=== PATIENT | male | born 1940 | race Caucasian/White ===

== ENCOUNTER 2017-08-06 08:38 | Day surgery (SDC) | payer MEDICARE, MEDICAID ==
[~2017-08-06 08:38] MED LIST: Lactated Ringers 1,000 ML IV SCH; Sodium Chloride 0.9% 5 ML Syringe FLUSH PRN
[2017-08-06] MEDS ORDERED: Lidocaine 2% Jelly 5 ML Tube ONE (09:37)
[2017-08-06] MEDS ORDERED: Propofol 200 MG/20 ML SDV IV ONE (09:45)
[2017-08-06] MEDS ORDERED: Midazolam 1 MG/ML 2 ML SDV ONE (09:45)
[2017-08-06] MEDS ORDERED: Midazolam 1 MG/ML 2 ML SDV IV ONE (09:45)
[2017-08-06] MEDS ORDERED: fentaNYL 100 MCG/2 ML SDV ONE (09:45)
[2017-08-06] MEDS ORDERED: Propofol 200 MG/20 ML SDV ONE (09:45)
[2017-08-06] MEDS ORDERED: fentaNYL 100 MCG/2 ML SDV IV ONE (09:45)
[2017-08-06] MEDS ORDERED: ceFAZolin 1 GM Vial IV ONE (09:45)
[2017-08-06] MEDS ORDERED: ceFAZolin 1 GM Vial ONE (10:05)
[2017-08-06] MEDS ORDERED: Lidocaine 2% Jelly 10 ML Urojet ONE (10:05)
--- NOTE | 2017-08-06 10:48 | PCM.PRNOTE ---
- Free Text/Narrative Note: Preoperative diagnosis: Dysuria frequency. Feeling of incomplete evacuation. Previous history of bladder stone. Previous history of urethral stenosis. Postoperative diagnosis: Severe meatal stenosis, phimosis ,Urethral stenosis, small bladder stone, previous history of TURP. Procedure performed: Meatotomy, urethral dilatation, cystoscopy. Informed consent was obtained from the patient and his . They wished me to proceed. All possible complications were discussed. The patient was taken toward and given a satisfactory general anesthetic. After that he was kept in lithotomy position. Genitals were thoroughly prepped and draped in the usual fashion. Examination revealed severe meatal stenosis. The meatotomy is performed. Also there was phimosis. We then gently dilated the urethra to #28 dilators. Following this we introduced a forward-viewing Zeiss cystoscope over a 20 Armenian obturator sheath. The urethra was felt to be normal. There was evidence of TURP. The scope was passed into the bladder. A very small stone was seen and irrigated out. The rest of the bladder mucosa was normal. There was no evidence of neoplasm. The scope was withdrawn. A 12 Armenian coud catheter was placed into the bladder. Returning urine was clear. The patient was transferred to the recovery room in an excellent condition.
[2017-08-06 13:36] VITALS: BP 122/73
== END 2017-08-06 12:45 | disposition home or self-care (01) ==
LOC: KA.SDS 08:38
PROVIDERS: ATTEND Family Medicine
DX: N35.9 Urethral stricture, unspecified (principal); N47.1 Phimosis; N21.0 Calculus in bladder; N40.0 Benign prostatic hyperplasia without lower urinary tract symptoms; E78.5 Hyperlipidemia, unspecified; I10 Essential (primary) hypertension; F41.9 Anxiety disorder, unspecified; Z86.718 Personal history of other venous thrombosis and embolism; Z79.899 Other long term (current) drug therapy; Z79.82 Long term (current) use of aspirin
CPT/HCPCS: 00910; J0690; J2250; J2704; J3010; J7120

== ENCOUNTER 2017-11-16 10:01 | Emergency (ER) | payer MEDICARE, MEDICAID ==
[2017-11-16 10:34] VITALS: BP 114/54
--- NOTE | 2017-11-16 11:02 | EDM.PDOC ---
ED HPI GENERAL MEDICAL PROBLEM - General Chief Complaint: General Stated Complaint: HE STATES HIS BUTT HURTS Time Seen by Provider: 11/16/17 10:24 Source of Information: Reports: Patient History Limitations: Reports: No Limitations - History of Present Illness INITIAL COMMENTS - FREE TEXT/NARRATIVE: Patient presents with gala-rectal pain that started 3 days ago but has worsened in last 24 hours. The pain is on the right side and hurts to sit. He denies history of hemorrhoids or abscess. Right Rectal Pain Score (Numeric/FACES): 3 - Related Data Allergies Allergy/AdvReac Type Severity Reaction Status Date / Time No Known Drug Allergies Allergy NKDA Verified 11/16/17 10:34 Home Meds: Home Meds Dutasteride [Avodart] 0.5 mg PO BEDTIME 09/14/14 [History] Esomeprazole [NexIUM] 40 mg PO QAM 09/14/14 [History] Iron Polysaccharide Complex [Poly-Iron] 150 mg PO BID 09/14/14 [History] Tamsulosin HCl 0.4 mg PO BEDTIME 09/14/14 [History] atorvaSTATin [Lipitor] 20 mg PO BEDTIME 09/14/14 [History] Acetaminophen [Tylenol Extra Strength] 1,000 mg PO Q6H PRN 06/20/17 [History] Aspirin [Halfprin] 81 mg PO BRK 06/20/17 [History] Fenofibrate Nanocrystallized [Fenofibrate] 145 mg PO DAILY 06/20/17 [History] Lisinopril/Hydrochlorothiazide [Lisinopril-Hctz 20-12.5 mg Tab] 1 each PO DAILY 06/20/17 [History] amLODIPine [Norvasc] 2.5 mg PO DAILY 06/20/17 [History] Past Medical History HEENT History: Reports: Sinusitis Cardiovascular History: Reports: Blood Clots/VTE/DVT, High Cholesterol, Hypertension Genitourinary History: Reports: BPH, Renal Calculus, UTI, Recurrent Musculoskeletal History: Reports: Arthritis, Back Pain, Chronic, Neck Pain, Chronic, Other (See Below) Other Musculoskeletal History: facet joint syndrom Psychiatric History: Reports: Anxiety Hematologic History: Reports: Iron Deficiency Immunologic History: Reports: None Oncologic (Cancer) History: Reports: Leukemia, Other (See Below) Other Oncologic History: Chronic Lymphocitic leukemia - Past Surgical History Oncologic Surgical History: Reports: None Social & Family History - Family History Family Medical History: Unobtainable ED ROS GENERAL - Review of Systems Review Of Systems: See Below Constitutional: Denies: Fever, Chills, Malaise, Weakness HEENT: Reports: No Symptoms Respiratory: Reports: No Symptoms. Denies: Shortness of Breath Cardiovascular: Reports: No Symptoms. Denies: Chest Pain, Syncope GI/Abdominal: Denies: Diarrhea, Vomiting Musculoskeletal: Reports: No Symptoms Skin: Reports: No Symptoms Neurological: Denies: Confusion, Dizziness, Headache, Seizure, Syncope Psychiatric: Denies: Agitation, Anxiety, Confusion ED EXAM, GENERAL - Physical Exam Exam: See Below Exam Limited By: No Limitations General Appearance: Alert, WD/WN, No Apparent Distress Eye Exam: Bilateral Eye: EOMI, Normal Inspection, PERRL Ears: Normal External Exam, Hearing Grossly Normal Nose: Normal Inspection, No Blood Throat/Mouth: Normal Inspection, Normal Lips, Normal Voice, No Airway Compromise Head: Atraumatic, Normocephalic Neck: Normal Inspection, Full Range of Motion Respiratory/Chest: No Respiratory Distress, Lungs Clear, Normal Breath Sounds, No Accessory Muscle Use Cardiovascular: Regular Rate, Rhythm, No Murmur Rectal (Males) Exam: Black Stool (he says he has had black stools related to his iron pill for 4 years; he has talked to Dr. Chin about it several times and is normal for him and iron supplement. No anemia or bleeding he says.), Other ( Two inches to the right of rectum, right lateral perineum and just posterior to the gluteal-thigh junction, is a 2 cm annular open abrasion. There is no induration or evidence of abscess formation but localized cellulitis mildly evident.) Extremities: Normal Inspection, Normal Range of Motion Neurological: Alert, Oriented, Normal Cognition, No Motor/Sensory Deficits Psychiatric: Normal Affect, Normal Mood Skin Exam: Warm, Dry, Normal Color, No Rash Course - Vital Signs Last Recorded V/S: Last Vital Signs Temp 98.0 F 11/16/17 10:30 Pulse 83 11/16/17 10:30 Resp 20 11/16/17 10:30 BP 114/54 L 11/16/17 10:30 Pulse Ox 98 11/16/17 10:30 - Re-Assessments/Exams Free Text/Narrative Re-Assessment/Exam: 11/16/17 11:17 Discussed findings and treatment plan with patient. We treated with neosporin and sterile dressing in ER. Will give Rx for Keflex and send 3 doses with patient to cover until Friday morning. Patient discharged to home in stable condition. Departure - Departure Time of Disposition: 11:12 Disposition: Home, Self-Care 01 Condition: Good Clinical Impression: Perineal abrasion - Discharge Information Referrals: Britta Villafana MD [Primary Care Provider] - Additional Instructions: 1. Take the antibiotic as directed. 2. Place antibiotic ointment or vaseline on the wound once or twice daily until healed. 3. Follow up with your PCP in two days for recheck.
[2017-11-16] MEDS ORDERED: Cephalexin 250 MG Cap PO ONE (11:15)
== END 2017-11-16 11:30 | disposition home or self-care (01) ==
LOC: KA.ED 10:01
DX: S30.810A Abrasion of lower back and pelvis, initial encounter (principal); E78.00 Pure hypercholesterolemia, unspecified; I10 Essential (primary) hypertension; Z79.82 Long term (current) use of aspirin; Z79.899 Other long term (current) drug therapy; X58.XXXA Exposure to other specified factors, initial encounter
CPT/HCPCS: 99282; A9270

== ENCOUNTER 2018-03-01 10:07 | Emergency (ER) | payer MEDICARE, MEDICAID ==
[2018-03-01 10:21] VITALS: BP 133/64
--- NOTE | 2018-03-01 10:40 | EDM.PDOC ---
ED HPI GENERAL MEDICAL PROBLEM - General Chief Complaint: General Stated Complaint: SORE THROAT Time Seen by Provider: 03/01/18 10:20 Source of Information: Reports: Patient History Limitations: Reports: No Limitations - History of Present Illness INITIAL COMMENTS - FREE TEXT/NARRATIVE: 78 YO WM presents to ER complaining of sore throat x 2 days. Pt states his pain is mild but hasn't improved in 2 days prompting ER evaluation. Pt denies difficulty breathing or swallowing. Pt denies fever/chills. Pt denies dysphagia to liquids or solids. Pt reports mild nasal congestion and intermittent nonproductive cough. Pt also complaining of right foot pain after fall 3 days ago. Pt reports pain is to right 2,3,4 toes. Pt denies any other injury. Pt denies loss of consciousness. Onset Date: 02/27/18 Duration: Day(s): (2) Location: Reports: Lower Extremity, Right Quality: Reports: Ache Severity: Mild Improves with: Reports: None Worsens with: Reports: None Associated Symptoms: Reports: No Other Symptoms Treatments RN TESTING: Reports: Acetaminophen, Other Medication(s) Other Treatments RN TESTING: cough drops - Related Data Allergies Allergy/AdvReac Type Severity Reaction Status Date / Time No Known Drug Allergies Allergy NKDA Verified 03/01/18 10:43 Home Meds: Home Meds Dutasteride [Avodart] 0.5 mg PO BEDTIME 09/14/14 [History] Esomeprazole [NexIUM] 40 mg PO QAM 09/14/14 [History] Iron Polysaccharide Complex [Poly-Iron] 150 mg PO BIDMEALS 09/14/14 [History] Tamsulosin HCl 0.4 mg PO BEDTIME 09/14/14 [History] atorvaSTATin [Lipitor] 20 mg PO BEDTIME 09/14/14 [History] Acetaminophen [Tylenol Extra Strength] 1,000 mg PO Q6H PRN 06/20/17 [History] Aspirin [Halfprin] 81 mg PO BRK 06/20/17 [History] Fenofibrate Nanocrystallized [Fenofibrate] 145 mg PO DAILY 06/20/17 [History] Lisinopril/Hydrochlorothiazide [Lisinopril-Hctz 20-12.5 mg Tab] 1 each PO DAILY 06/20/17 [History] amLODIPine [Norvasc] 2.5 mg PO DAILY 06/20/17 [History] Past Medical History HEENT History: Reports: Sinusitis Cardiovascular History: Reports: Blood Clots/VTE/DVT, High Cholesterol, Hypertension Genitourinary History: Reports: BPH, Renal Calculus, UTI, Recurrent Musculoskeletal History: Reports: Arthritis, Back Pain, Chronic, Neck Pain, Chronic, Other (See Below) Other Musculoskeletal History: facet joint syndrom Psychiatric History: Reports: Anxiety Hematologic History: Reports: Iron Deficiency Immunologic History: Reports: None Oncologic (Cancer) History: Reports: Leukemia, Other (See Below) Other Oncologic History: Chronic Lymphocitic leukemia - Past Surgical History Oncologic Surgical History: Reports: None Social & Family History - Family History Family Medical History: Unobtainable - Caffeine Use Caffeine Use: Reports: None ED ROS GENERAL - Review of Systems Review Of Systems: See Below Constitutional: Reports: No Symptoms HEENT: Reports: Rhinitis, Throat Pain Respiratory: Reports: No Symptoms Cardiovascular: Reports: No Symptoms Endocrine: Reports: No Symptoms GI/Abdominal: Reports: No Symptoms : Reports: No Symptoms Musculoskeletal: Reports: Foot Pain (right 2,3,4th toes) Skin: Reports: No Symptoms Neurological: Reports: No Symptoms Psychiatric: Reports: No Symptoms Hematologic/Lymphatic: Reports: No Symptoms Immunologic: Reports: No Symptoms ED EXAM, GENERAL - Physical Exam Exam: See Below Exam Limited By: No Limitations General Appearance: Alert, WD/WN, No Apparent Distress Nose: Normal Inspection, Normal Mucosa, No Blood Throat/Mouth: Normal Inspection, Normal Lips, Normal Gums, Normal Oropharynx, Normal Voice, No Airway Compromise. No: Dysphagia Head: Atraumatic, Normocephalic Neck: Normal Inspection, Supple, Non-Tender, Full Range of Motion Respiratory/Chest: No Respiratory Distress, Lungs Clear, Normal Breath Sounds, No Accessory Muscle Use, Chest Non-Tender Cardiovascular: Normal Peripheral Pulses, Regular Rate, Rhythm, No Edema, No Gallop, No JVD, No Murmur, No Rub GI/Abdominal: Normal Bowel Sounds, Soft, Non-Tender, No Organomegaly, No Distention, No Abnormal Bruit, No Mass Back Exam: Normal Inspection, Full Range of Motion, NT Extremities: Other (right 2,3,4th toe with mild echymosis without swelling) Neurological: Alert, Oriented, CN II-XII Intact, Normal Cognition, Normal Gait, Normal Reflexes, No Motor/Sensory Deficits Psychiatric: Normal Affect, Normal Mood Skin Exam: Warm, Dry, Intact, Normal Color, No Rash Lymphatic: No Adenopathy Course - Vital Signs Last Recorded V/S: Last Vital Signs Temp 36.6 C 03/01/18 10:18 Pulse 84 03/01/18 10:18 Resp 20 03/01/18 10:18 BP 133/64 03/01/18 10:18 Pulse Ox 96 03/01/18 10:18 - Orders/Labs/Meds Orders: Active Orders 24 hr Category Date Time Status Foot Comp Min 3V Rt [CR] Stat Exams 03/01/18 10:40 Ordered Departure - Departure Time of Disposition: 11:30 Disposition: Home, Self-Care 01 Condition: Good Clinical Impression: Contusion of foot Qualifiers: Encounter type: initial encounter Laterality: right Qualified Code(s): S90.31XA - Contusion of right foot, initial encounter Pharyngitis Qualifiers: Pharyngitis/tonsillitis etiology: unspecified etiology Qualified Code(s): J02.9 - Acute pharyngitis, unspecified Upper respiratory infection Qualifiers: URI type: unspecified viral URI Qualified Code(s): J06.9 - Acute upper respiratory infection, unspecified - Discharge Information Instructions: Foot Contusion, Kxez-[id number], Viral Respiratory Infection, Easy- To-Read, Pharyngitis Referrals: Bayron Meier PA-C [Primary Care Provider] - Forms: ED Department Discharge Additional Instructions: 1. discharge home 2. motrin 600mg PO Q6 x 5 days 3. zyrtec 10mg PO QD 4. daina tape toes 5. follow up at [facility] for further evaluation and treatment 6. return to ER for worsening symptoms - My Orders Last 24 Hours: My Active Orders 03/01/18 10:40 Foot Comp Min 3V Rt [CR] Stat - Assessment/Plan Last 24 Hours: My Active Orders 03/01/18 10:40 Foot Comp Min 3V Rt [CR] Stat Assessment:: 1. right foot pain 2. viral pharyngitis 3. URI Plan: 1. discharge home 2. motrin 600mg PO Q6 x 5 days 3. zyrtec 10mg PO QD 4. daina tape toes 5. follow up at [facility] for further evaluation and treatment 6. return to ER for worsening symptoms
== END 2018-03-01 11:40 | disposition home or self-care (01) ==
LOC: KA.ED 10:07
DX: S90.121A Contusion of right lesser toe(s) without damage to nail, initial encounter (principal); J02.9 Acute pharyngitis, unspecified; J06.9 Acute upper respiratory infection, unspecified; W19.XXXA Unspecified fall, initial encounter
CPT/HCPCS: 73630-RT; 87081; 87430; 99283

== ENCOUNTER 2022-02-20 22:24 | Inpatient (IN) | payer MEDICARE, MEDICAID ==
[2022-02-20] MEDS ORDERED: Sodium Chloride 0.9% 10 ML Syringe FLUSH PRN (22:50)
[2022-02-20] MEDS ORDERED: Sodium Chloride 0.9% 500 ML IV SCH (23:15)
[2022-02-20 23:43] LABS: ANION GAP 18.8 mmol/L (5-15); CHLORIDE,CL 114 mmol/L (98-107); SODIUM,NA 149 mmol/L (136-145)
[2022-02-20 23:58] LABS: ESTIMATED GFR 29 mL/min (>=60)
[2022-02-21 00:04] LABS: PTT,PARTIAL THROMBOPLSTIN TIME 29.1 SEC (22.8-31.4)
[2022-02-21] MEDS: Lactated Ringers 1,000 ML IV SCH ×2 (01:50→10:27)
[2022-02-21 02:43] LABS: ANION GAP 17.3 mmol/L (5-15)
[2022-02-21 05:44] LABS: ANION GAP 15.8 mmol/L (5-15)
[2022-02-21] MEDS: Gabapentin 100 MG Cap PO SCH ×2 (10:14→20:05)
[2022-02-21 11:22] LABS: ANION GAP 13.3 mmol/L (5-15)
[2022-02-21 18:07] LABS: ANION GAP -3.2 mmol/L (5-15)
[2022-02-21] MEDS ORDERED: cefTRIAXone 2 GM Vial IVPUSH ONE (19:14)
[2022-02-21] MEDS ORDERED: Azithromycin 500 MG in Sodium Chloride 0.9% 250 ML IV ONE (19:16)
[2022-02-21] MEDS ORDERED: Sodium Chloride 0.9% 100 ML IV SCH (19:45)
[2022-02-21] MEDS: Sodium Chloride 0.9% 1,000 ML IV SCH (19:53)
[2022-02-21] MEDS: Tamsulosin 0.4 MG Cap.ER PO SCH (20:04)
[2022-02-21] MEDS: Mirtazapine 15 MG Tab PO SCH (20:05)
[2022-02-21] MEDS: Cetirizine 10 MG Tab PO SCH (20:06)
[2022-02-21] MEDS: Melatonin 3 MG Tab PO SCH (20:07)
[2022-02-22 00:24] LABS: ANION GAP 10.3 mmol/L (5-15)
[2022-02-22] MEDS: Omeprazole 20 MG Cap.CR PO SCH ×2 (05:44→08:21)
[2022-02-22 08:26] LABS: ANION GAP 9.4 mmol/L (5-15)
[2022-02-22] MEDS: Gabapentin 100 MG Cap PO SCH ×2 (08:32→20:32)
[2022-02-22] MEDS: Dutasteride 0.5 MG Cap PO SCH (08:32)
[2022-02-22] MEDS: Sodium Chloride 0.9% 1,000 ML IV SCH (10:25)
[2022-02-22] MEDS ORDERED: Amoxicillin/Clavulanate K 875-125 MG Tab PO SCH (11:00)
[2022-02-22] MEDS: Magnesium Oxide 500 MG Tab PO SCH ×2 (11:17→20:32)
[2022-02-22] MEDS: Azithromycin 250 MG Tab PO SCH (18:09)
[2022-02-22] MEDS: Mirtazapine 15 MG Tab PO SCH (20:31)
[2022-02-22] MEDS: Cetirizine 10 MG Tab PO SCH (20:32)
[2022-02-22] MEDS: Amoxicillin/Clavulanate K 875-125 MG Tab PO SCH (20:32)
[2022-02-22] MEDS: Melatonin 3 MG Tab PO SCH (20:32)
[2022-02-22] MEDS: Tamsulosin 0.4 MG Cap.ER PO SCH (20:32)
[2022-02-22] MEDS: Acetaminophen 500 MG Tab PO PRN (20:32)
[2022-02-23] MEDS: Omeprazole 20 MG Cap.CR PO SCH (07:56)
[2022-02-23 08:20] LABS: ANION GAP 11.4 mmol/L (5-15)
[2022-02-23] MEDS: Magnesium Oxide 500 MG Tab PO SCH ×2 (09:01→21:21)
[2022-02-23] MEDS: Gabapentin 100 MG Cap PO SCH ×2 (09:01→21:20)
[2022-02-23] MEDS: Azithromycin 250 MG Tab PO SCH (09:01)
[2022-02-23] MEDS: Dutasteride 0.5 MG Cap PO SCH (09:01)
[2022-02-23] MEDS: Amoxicillin/Clavulanate K 875-125 MG Tab PO SCH ×2 (09:02→21:20)
[2022-02-23] MEDS: Acetaminophen 500 MG Tab PO PRN (18:57)
[2022-02-23] MEDS: Tamsulosin 0.4 MG Cap.ER PO SCH (21:20)
[2022-02-23] MEDS: Melatonin 3 MG Tab PO SCH (21:20)
[2022-02-23] MEDS: Mirtazapine 15 MG Tab PO SCH (21:20)
[2022-02-23] MEDS: Cetirizine 10 MG Tab PO SCH (21:20)
[2022-02-24] MEDS: Omeprazole 20 MG Cap.CR PO SCH ×2 (06:01→06:44)
[2022-02-24 08:11] LABS: ANION GAP 9.9 mmol/L (5-15)
[2022-02-24] MEDS: Amoxicillin/Clavulanate K 875-125 MG Tab PO SCH ×2 (09:26→20:03)
[2022-02-24] MEDS: Gabapentin 100 MG Cap PO SCH ×2 (09:26→20:03)
[2022-02-24] MEDS: Azithromycin 250 MG Tab PO SCH (09:26)
[2022-02-24] MEDS: Dutasteride 0.5 MG Cap PO SCH (09:26)
[2022-02-24] MEDS: Magnesium Oxide 500 MG Tab PO SCH (10:56)
[2022-02-24] MEDS: Mirtazapine 15 MG Tab PO SCH (20:03)
[2022-02-24] MEDS: Melatonin 3 MG Tab PO SCH (20:03)
[2022-02-24] MEDS: Tamsulosin 0.4 MG Cap.ER PO SCH (20:03)
[2022-02-24] MEDS: Cetirizine 10 MG Tab PO SCH (20:03)
[2022-02-25] MEDS: Omeprazole 20 MG Cap.CR PO SCH ×2 (06:01→06:29)
[2022-02-25 06:14] VITALS: BP 111/48; PULSE 79
[2022-02-25 08:27] LABS: ANION GAP 11.3 mmol/L (5-15)
[2022-02-25] MEDS: Amoxicillin/Clavulanate K 875-125 MG Tab PO SCH (09:54)
[2022-02-25] MEDS: Gabapentin 100 MG Cap PO SCH (09:54)
[2022-02-25] MEDS: Dutasteride 0.5 MG Cap PO SCH (09:54)
== END 2022-02-25 10:30 | DRG 564 ==
LOC: KA.ED 22:24 → KA.MS 02-21 00:40 → UNDOADMIN 02-21 00:52 → KA.MS 02-21 00:52
PROVIDERS: ADMIT Physician Assistant Medical; ATTEND Student in an Organized Health Care Education/Training Program
DX: T79.6XXA Traumatic ischemia of muscle, initial encounter (principal); J18.9 Pneumonia, unspecified organism; N17.9 Acute kidney failure, unspecified; C91.10 Chronic lymphocytic leukemia of B-cell type not having achieved remission; W01.0XXA Fall on same level from slipping, tripping and stumbling without subsequent striking against object, initial encounter; Y92.030 Kitchen in apartment as the place of occurrence of the external cause; R77.8 Other specified abnormalities of plasma proteins; I10 Essential (primary) hypertension; D69.6 Thrombocytopenia, unspecified; D75.89 Other specified diseases of blood and blood-forming organs; E78.00 Pure hypercholesterolemia, unspecified; K21.9 Gastro-esophageal reflux disease without esophagitis; N40.0 Benign prostatic hyperplasia without lower urinary tract symptoms; M19.90 Unspecified osteoarthritis, unspecified site; G89.29 Other chronic pain; M54.9 Dorsalgia, unspecified; M54.2 Cervicalgia; F41.9 Anxiety disorder, unspecified; F32.A Depression, unspecified; J34.89 Other specified disorders of nose and nasal sinuses; M47.812 Spondylosis without myelopathy or radiculopathy, cervical region; Z66 Do not resuscitate; E79.0 Hyperuricemia without signs of inflammatory arthritis and tophaceous disease; E83.42 Hypomagnesemia; Z20.822 Contact with and (suspected) exposure to COVID-19; W19.XXXA Unspecified fall, initial encounter; Z79.82 Long term (current) use of aspirin; Z79.899 Other long term (current) drug therapy; Z87.440 Personal history of urinary (tract) infections; Z90.49 Acquired absence of other specified parts of digestive tract; Z86.718 Personal history of other venous thrombosis and embolism
CPT/HCPCS: 36415; 70450; 71045; 80048; 80053; 81001; 82550; 82607; 82746; 83605; 83735; 84100; 84295; 84484; 84550; 85025; 85610; 85730; 93005; 99285; A9270-GY; J0456; J0696; J3490; J7030; J7040; J7050; J7120; U0002

== ENCOUNTER 2022-08-15 10:05 | Emergency (ER) | payer MEDICARE, MEDICAID ==
[2022-08-15 10:39] VITALS: BP 142/74; PULSE 105
[2022-08-15 10:47] LABS: ANION GAP 15.6 mmol/L (5-15)
[2022-08-15 11:02] LABS: PTT,PARTIAL THROMBOPLSTIN TIME 26.3 SEC (22.8-31.4)
[2022-08-15 11:09] LABS: CORONAVIRUS COVID-19 NAA POSITIVE (NEGATIVE)
== END 2022-08-15 13:35 ==
LOC: KA.ED 10:05
DX: U07.1 COVID-19 (principal); C91.10 Chronic lymphocytic leukemia of B-cell type not having achieved remission; I10 Essential (primary) hypertension; K21.9 Gastro-esophageal reflux disease without esophagitis; Z79.899 Other long term (current) drug therapy
CPT/HCPCS: 0240U; 36415; 71045; 80053; 82550; 83605; 83880; 84484; 85025; 85610; 85730; 86140; 87040; 93005; 93010; 99284